=== PATIENT | female | born 1990 | race African-American/Black ===

== ENCOUNTER 2018-12-07 11:06 | Outpatient (CLI) | payer BC, OTHER | END 2018-12-07 11:07 | disposition home or self-care (01) | LOC: DTY/OP 11:06 | PROVIDERS: ATTEND Nurse Practitioner Family | DX: E66.01 Morbid (severe) obesity due to excess calories (principal) | CPT/HCPCS: 97802 ==

== ENCOUNTER 2020-11-05 14:37 | Outpatient (CLI) | payer OTHER | END 2020-11-05 14:38 | disposition home or self-care (01) | LOC: BICULT 14:37 | PROVIDERS: ATTEND Nurse Practitioner Family | DX: M79.604 Pain in right leg (principal); M79.605 Pain in left leg | CPT/HCPCS: 93923; 93970 ==